=== PATIENT | male | born 1960 | race Caucasian/White ===

== ENCOUNTER → 2023-10-10 06:12 | Day surgery (SDC) | payer OTHER, SELFPAY | LOC: GI 06:12 | PROVIDERS: ATTENDING PHYSICIAN Specialist | DX: Z12.11 Encounter for screening for malignant neoplasm of colon (principal); K57.30 Diverticulosis of large intestine without perforation or abscess without bleeding; K63.5 Polyp of colon; R13.10 Dysphagia, unspecified; K21.00 Gastro-esophageal reflux disease with esophagitis, without bleeding; K22.70 Barrett's esophagus without dysplasia; Z86.010 Personal history of colon polyps | CPT/HCPCS: 45380; 43239; 88305 ==

== ENCOUNTER → 2024-02-13 07:32 | Outpatient (REF) | payer OTHER, SELFPAY | LOC: RAD 07:32 | PROVIDERS: ATTENDING PHYSICIAN Specialist; FAMILY PHYSICIAN Family Medicine | DX: N20.0 Calculus of kidney (principal) | CPT/HCPCS: 76775 ==